=== PATIENT | female | born 1950 | race Caucasian/White ===

== ENCOUNTER → 2019-01-08 10:26 | Outpatient (CLI) | payer MEDICARE, OTHER, SELFPAY ==
--- NOTE | 2019-01-08 | DI.US.S_ITS ---
PROCEDURE: US ARTERIAL DUPLEX LE BI INDICATIONS: BILATERAL LEG PAIN TECHNIQUE: Color and pulse Doppler interrogation was performed of both lower extremity arterial systems, with image documentation. COMPARISON: None. FINDINGS: Normal-appearing, triphasic waveforms are seen throughout. The flow velocities are likewise within normal limits. No focal area of increased flow velocity is seen to suggest a focal stenosis. Antegrade flow is confirmed to the distal aspects of each of the trifurcation vessels. No significant marmloejo scale abnormality is seen. IMPRESSION: No hemodynamically significant stenosis can be seen. Dictated by: Hugo Ferrari M.D. on 01/08/2019 at 15:56 Approved by: Hugo Ferrari M.D. on 01/08/2019 at 15:57
== END ==
PROVIDERS: PCP Nurse Practitioner Family; Visit Provider Nurse Practitioner Family
DX: M79.605 Pain in left leg (principal); M79.604 Pain in right leg
CPT/HCPCS: 93925

== ENCOUNTER → 2019-03-23 14:49 | Outpatient (CLI) | payer MEDICARE, OTHER, SELFPAY ==
--- NOTE | 2019-03-23 | DI.MRI.S_ITS ---
PROCEDURE: MR ANGIO PELVIS W CON INDICATIONS: Pain in right leg TECHNIQUE: Noncontrast coronal and axial T2 sequences of the pelvis. Pre-and post contrast gradient echo sequences of the pelvis are performed. COMPARISON: [facility], , ARTERIAL DUPLEX [facility], 01/08/2019, 11:02. FINDINGS: Image quality: Excellent. The abdominal aorta is widely patent as visualized. The bilateral common, internal, and external iliac arteries are patent. The common, profunda, and proximal superficial femoral arteries are patent. Visualized venous vasculature is grossly patent. Visualized bowel loops are normal in caliber and wall thickness. Urinary bladder is grossly unremarkable. Uterus is grossly unremarkable. Visualized osseous structures are grossly unremarkable. IMPRESSION: No significant inflow nor proximal outflow stenosis bilaterally. Dictated by: Yola Davis M.D. on 03/23/2019 at 16:04 Approved by: Yola Davis M.D. on 03/23/2019 at 16:07
== END ==
PROVIDERS: PCP Nurse Practitioner Family; Visit Provider Nurse Practitioner Family
DX: M79.604 Pain in right leg (principal)
CPT/HCPCS: C8918; A9579

== ENCOUNTER → 2019-04-07 09:37 | Outpatient (CLI) | payer MEDICARE, OTHER, SELFPAY ==
--- NOTE | 2019-04-07 | DI.MRI.S_ITS ---
PROCEDURE: MR LUMBAR SPINE WO CON INDICATIONS: Low back and bilateral leg pain/weakness TECHNIQUE: Noncontrast sagittal T1 spin echo and T2 fast echo, sagittal STIR, axial T1 and T2 fast spin echo through the lumbar spine. In cases with scoliosis, additional coronal T2 fast spin echo may be performed. COMPARISON: [facility], MR, T-SPINE WITH AND WITHOUT CONTR, 09/09/2006, 13:19. [facility], MR, LUMBAR SPINE W/O CONTRAST, 09/08/2004, 9:26. [facility], CR, L-SPINE 2-3 VIEWS, 10/22/2011, 11:57. FINDINGS: Image quality: Excellent. Alignment and Curvature: There is normal bony alignment. Bone Marrow: There is abnormal signal in the anterosuperior endplate of T11, which is partially visualized. On the comparison MRI dated 09/09, there is Modic type 1 endplate signal degeneration. Mild chronic compression deformity of the superior endplate of L5 appears unchanged. Spinal Cord: Conus medullaris terminates at the L1 level. Visualized cord demonstrates normal signal and size. Paraspinous Soft Tissues: No paravertebral masses. L1-L2: Normal appearance. L2-L3: Normal appearance. L3-L4: Mild loss of disc height and disc desiccation. There is mild posterior disc bulge. Mild bilateral facet arthropathy. The central canal is patent. No foraminal stenosis. No definitive nerve root impingement. L4-L5: Mild loss of disc height and disc desiccation. There is mild posterior disc bulge. Moderate bilateral facet arthropathy. The central canal is patent. No foraminal stenosis. No definitive nerve root impingement. L5-S1: Normal appearance. IMPRESSION: 1. Stable L5 superior endplate compression deformity. 2. Mild degenerative disc and facet disease in lower lumbar spine. 3. No central canal or foraminal stenosis. Dictated by: Ivan Mcgill M.D. on 04/07/2019 at 16:23 Approved by: Ivan Mcgill M.D. on 04/07/2019 at 16:33
== END ==
PROVIDERS: PCP Nurse Practitioner Family; Visit Provider Nurse Practitioner Family
DX: M54.5 Low back pain (principal); R29.898 Other symptoms and signs involving the musculoskeletal system; M79.605 Pain in left leg; M79.604 Pain in right leg; M51.36 Other intervertebral disc degeneration, lumbar region; M47.816 Spondylosis without myelopathy or radiculopathy, lumbar region
CPT/HCPCS: 72148

== ENCOUNTER → 2019-04-23 09:43 | Outpatient (CLI) | payer MEDICARE, OTHER, SELFPAY | PROVIDERS: PCP Nurse Practitioner Family; Visit Provider Nurse Practitioner Family | DX: R20.0 Anesthesia of skin (principal) | CPT/HCPCS: 95885; 95886; 95910; 95911 ==

== ENCOUNTER → 2019-05-13 10:08 | Outpatient (CLI) | payer MEDICARE, OTHER, SELFPAY ==
--- NOTE | 2019-05-13 10:10 | DI.RAD.S_ITS ---
PROCEDURE: XR LUMBAR SPINE MIN 4V INDICATIONS: Bilateral L4-5 L5-S1 facets with cyst rupture TECHNIQUE: 5 views of the lumbar spine were acquired. COMPARISON: [facility], , L-SPINE 2-3 VIEWS, 10/22/2011, 11:57. FINDINGS: Bones: 5 nonrib-bearing vertebrae are present. There is preservation of the normal lumbar lordosis. There are moderate multilevel degenerative disease of the lumbar spine with extensive facet arthropathy from L3 through S1. There is loss of intervertebral disc space height at L3-L4 and L4-L5. There is a superior endplate deformity of the anterior superior L5 vertebral body. There are mild degenerative changes of the hip joints bilaterally. There is mild dextrocurvature of the superior lumbar spine. Soft tissues: Nonobstructive bowel gas pattern. IMPRESSION: 1. Moderate multilevel degenerative changes of the lumbar spine. 2. Superior endplate deformity of the anterior superior L5 vertebral body most consistent with a superior endplate Schmorl's node, with vertebral body fracture thought less likely. Correlation with point tenderness suggested. Dictated by: Socrates Archibald M.D. on 05/13/2019 at 14:40 Approved by: Socrates Archibald M.D. on 05/13/2019 at 14:45
== END ==
PROVIDERS: PCP Nurse Practitioner Family; Visit Provider Physical Medicine & Rehabilitation
DX: M47.27 Other spondylosis with radiculopathy, lumbosacral region (principal)
CPT/HCPCS: 72110; 99214

== ENCOUNTER 2019-06-02 11:52 | Outpatient (CLI) | payer MEDICARE, OTHER, SELFPAY ==
--- NOTE | 2019-06-02 11:54 | DI.RAD.S_ITS ---
PROCEDURE: PAIN L/S FACET INJ/BLK 1ST MARCELA COMPARISON: None. INDICATIONS: SPONDYLOSIS FINDINGS: 6 intraoperative fluoroscopy images were obtained, demonstrating needle placement at L4-L5 and L5-S1 facet joints bilaterally. IMPRESSION: Fluoroscopy for pain management. Dictated by: Ivan Mcgill M.D. on 06/04/2019 at 8:50 Approved by: Ivan Mcgill M.D. on 06/04/2019 at 8:51
[2019-06-02 12:38] VITALS: BP 118/70; PULSE 77; RESP 16; TEMP 36.7; O2SAT 98
[2019-06-02 13:32] VITALS: BP 133/69; PULSE 76; RESP 16; O2SAT 100
[2019-06-02] MEDS: MIDAZOLAM 5 MG/5 ML VIAL IV (13:33)
[2019-06-02] MEDS: fentaNYL 100 MCG/2 ML INJ 50 MCG IV (13:33)
[2019-06-02 13:37] VITALS: BP 102/57; PULSE 76; RESP 16; O2SAT 98
[2019-06-02 13:42] VITALS: BP 96/59; PULSE 71; RESP 16; O2SAT 99
--- NOTE | 2019-06-02 13:44 | PC.NURSE ---
NOTIFIED DO OF DECREASED BP. NO NEW ORDERS AT THIS TIME.
[2019-06-02 13:46] VITALS: BP 110/69; PULSE 78; RESP 16; O2SAT 98
[2019-06-02] MEDS: BETAMETHASONE 30 MG/5 ML MDV 12 MG INJ (13:46)
[2019-06-02] MEDS: LIDOCAINE 1% 20 ML 10 ML INJ (13:46)
[2019-06-02] MEDS: BUPIVACAINE 0.5% (PF) VIAL 2 ML INJ (13:46)
[2019-06-02] MEDS: IOPAMIDOL 15 ML VIAL 3 ML INJ (13:46)
--- NOTE | 2019-06-02 13:47 | PC.NURSE ---
ASSISTING PT OFF TABLE AND TRANSPORTING TO POST PROC AREA IN STABLE CONDITION. PASSING RN CARE OF PT TO ELIZABETH Leigh RN.
--- NOTE | 2019-06-02 13:52 | P.PCN_ITS ---
Procedures Date/Time Date of procedure: 06/02/19 Time of procedure: 13:53 General Procedure description: PREOP DIAGNOSIS 1. FACET ARTHROPATHY 2. AXIAL LBP 3. MULTILEVEL DDD POST OP DIAGNOSIS 1. FACET ARTHROPATHY 2. AXIAL LBP 3. MULTILEVEL DDD PROCEDURES 1. FLUORSCOPICALLY GUIDED CONTRAST CONTROLLED FACET JOINT INJECTIONS BILATERAL L4/5, L5/S1 with cyst rupture PHYSICIAN: Hiram Ford DO INDICATIONS Meagan is referred by SOLANGE Zurita for treatment of Axial LBP FINDINGS Multilevel Facet Arthropathy with Clinically significant axial LBP DESCRIPTION OF PROCEDURE Fluoroscopically guided, contrast-controlled bilateral L4/5, L5/S1 facet joint injections. Following review of allergy and review of potential side effects and complications, including, but not necessarily limited to, infection, allergic reaction, local tissue breakdown, stroke, temporary or permanent nerve injury, paralysis, and possible , the patient indicated that the patient understood and agreed to proceed. An informed consent document was signed by the patient, witnessed by a nurse, and placed in the patient's chart. Additionally, other treatment options including medications, modalities, and physical therapy were reviewed with the patient. After review of previous anaesthesic history and IV conscious sedation the patient was deemed safe to proceed with todays procedure with IV conscious sedation as ASA class II designation. Safety time-out was performed to confirm patient ID, procedure to be performed and site of procedure. IV sedation was accomplished with a combination of 5mg of Versed and 50mcg of Fentanyl was administered by the RN after DO order, titrated to patient comfort during the course of the procedure while the patient remained responsive to all verbal commands In the prone position, following sterile prep and drape of the lumbar region, the posterior aspect of the L4/5, L5/S1 facet joints were identified fluoroscopically. The skin was anesthetized via a 25-gauge 1.5-inch needle with 1% lidocaine solution into the corresponding facet joints. At this point, a 22- gauge 3.5-inch spinal needle was atraumatically introduced and advanced under fluoroscopic guidance into the corresponding facet joints. Following aspiration of the joint which revealed serosanguanus fluid the cyst was ruptured. Then followed with injections of approximately 0.2cc of Isovue 200 confirmed interarticular placement without vascular uptake. The identical procedure was then performed at the L4/5, L5/S1 facet joints on the left. Radiological data, including multiple fluoroscopic views of the lumbosacral spine, reveal a spinal needle at the L4/5, L5/S1 facet joints bilaterally. Subsequent views show flow of contrast material both superiorly and inferiorly within the joint space without vascular or intrathecal uptake. At this point, a total of 0.5cc including a mixture of 0.25cc Marcaine and 0.25cc betamethasone was injected without complication into each of the corresponding facet joints. The patient tolerated the procedure well without signs or symptoms of complications prior to transfer to the recovery area continued monitoring without incident. The patient was then transferred to the recovery area where they were observed for an appropriate period of time after the injection. The patient reported a VAS score of 7 prior to the procedure and a post- procedure VAS of 0. Total Fluoroscopy Time: 20.3 seconds Total Conscious Sedation Time: 24min POST OP INSTRUCTIONS The patient was provided a Pain Log to continue to record their response to the target-specific procedure prior to follow-up visit with their referring physician. Additionally, specific post-injection care instructions and a contact number to our office were provided if concerns arise regarding possible complications associated with the procedure are suspected. Hiram Ford DO Complications: none
--- NOTE | 2019-06-02 16:59 | PC.NURSE ---
Late entry: Post procedure note-- Arrived at 1555. Awake but drowsy. Transferred to recliner from /c with stand by assist. Hand off report received from Ronni Noble RN. VSS, O2 sat WNL on RA. Pain level 0/10. No complaints of unusual numbness or tingling to lower extremities. Discharged to home via wheel chair to car with at 1425. Covered by Lakesha Smith RN [phone]
== END 2019-06-02 14:25 | disposition home or self-care (01) ==
LOC: RAD 11:53
PROVIDERS: PCP Nurse Practitioner Family; Visit Provider Physical Medicine & Rehabilitation
DX: M47.816 Spondylosis without myelopathy or radiculopathy, lumbar region (principal); M47.817 Spondylosis without myelopathy or radiculopathy, lumbosacral region; M54.5 Low back pain; M51.36 Other intervertebral disc degeneration, lumbar region; M51.37 Other intervertebral disc degeneration, lumbosacral region
CPT/HCPCS: 64493; 64494; 99152; J0702; J2250; J3010